=== PATIENT | female | born 1980 | race Caucasian/White ===

== ENCOUNTER 2020-10-07 23:01 | Emergency (ER) | payer OTHER ==
[~2020-10-07] VITALS: Ht 162.6 cm; Wt 120.2 kg
[~2020-10-07 23:01] MED LIST: ACETAMINOPHEN-1 EAC1 PO; ALDACTONE25 MG; ATIVAN1 MG PO; BUSPIRONE HCL10 MG PO; BUSPIRONE HCL7.5 MG; BUTALB-APAP-CA1 EACH; CARTIA XT180 M1; CLARITIN10 MG; CLINDAMYCIN HC150 MG PO; CYMBALTA60 MG; DILTIAZEM ER120 M1; FLONASE 0.05%50 MCG NASAL; LASIX 20 MG TAB20 MG; LEVOTHYROXIN0.025 MG PO; LISINOPRIL20 MG; MEDROLDOSEPACK PO; NEURONTIN 300300 M1; PROAIR HFA8.5 GM INH; PROMETHAZINE D480 ML PO; PROMETHAZINE/C118 ML PO; PROZAC 10 MG CA10 MG; TESSALON PERLE100 MG PO; TYLENOL WITH CO1 TA1; XANAX 0.25 MG0.25 MG PO; XANAX 0.5 MG0.5 MG; ZANTAC 150MG T150 MG; ZOFRAN ODT4 MG; ZPAK PO
[2020-10-07] MEDS ORDERED: FISH OIL 1,0001 EAC9 PO (23:14)
[2020-10-07] MEDS ORDERED: CALCIUM500 MG PO (23:14)
[2020-10-07] MEDS ORDERED: FUROSEMIDE 20 M20 MG PO (23:14)
[2020-10-07] MEDS ORDERED: XANAX 0.5 MG0.5 M1 PO (23:15)
[2020-10-08 00:01] LABS: CALCIUM 8.5 mg/dL (8.5-10.1); CREATININE 1.1 mg/dL (0.6-1.3); POTASSIUM 3.7 mmol/L (3.5-5.1)
[2020-10-08 00:12] LABS: TOTAL BILIRUBIN 0.7 mg/dL (<0.1-1.0); TOTAL PROTEIN 8.4 g/dL (6.4-8.2)
[2020-10-08 00:18] LABS: ABSOLUTE BASOPHILS 0.1 thou/uL (0.0-0.2); ABSOLUTE EOSINOPHILS 0.2 thou/uL (0.0-0.7); ABSOLUTE LYMPHOCYTES 2.3 thou/uL (0.8-5.3); ABSOLUTE MONOCYTES 0.7 thou/uL (0.0-1.2); ABSOLUTE NEUTROPHILS 8.5 thou/uL (1.6-8.1); BASOPHILS 0.8 %; EOSINOPHILS 1.7 %; HEMATOCRIT 39.6 % (37.0-47.0); HEMOGLOBIN 13.7 gm/dL (12.0-15.0); LYMPHOCYTES 19.6 %; MCH 28.6 pg (26.0-34.0); MCHC 34.6 g/dL (28.0-37.0); MCV 82.6 fL (80.0-100.0); MONOCYTES 6.3 %; MPV 8.3 fl. (7.2-11.1); NUCLEATED RBCS 0 /100WBC; PLATELET COUNT* 321 thou/uL (150-400); POLYS 71.6 %; RBC 4.79 mil/uL (4.20-5.00); RDW-CV 14.1 % (10.5-14.5); WBC 11.9 thou/uL (4.0-11.0)
[2020-10-08] MEDS ORDERED: FUROSEMIDE 20 M20 M1 PO (02:38)
[2020-10-08 02:49] VITALS: BP 170/84
--- NOTE | 2020-10-09 14:02 | EKG ---
[place] [address] ELECTROCARDIOGRAM REPORT Name: DONNA HAM Room: [facility]#: [id number] Admission: 10/07/20 Attend Phys: Discharge: 10/08/20 Date of : 80 Date of Service: 10/07/20 2344 Report #: [id number] THIS REPORT FOR: //name// [facility] ED Test Date: 2020-10-07 Test Time: 23:44:08 Pat Name: DONNA HAM Department: Room: Gender: F Infectious Disease Technician: : 1980 Requested By: Maty Hung Order Number: [id number] MD: Kofi Encarnacion Measurements Intervals [place] Rate: 67 P: 49 DC: 171 QRS: 3 QRSD: 94 T: 27 QT: 453 QTc: 479 Interpretive Statements Sinus rhythm Borderline prolonged QT interval Baseline wander in lead(s) II,III,aVR,aVL,aVF,V2,V3,V4,V5,V6 Compared to ECG 04/19/2015 03:48:47 Sinus bradycardia no longer present Electronically Signed On 10-09-2020 14:02:29 CDT by Kofi Encarnacion [email or web address] <ELECTRONICALLY SIGNED> By: Kofi Encarnacion MD, [facility] 10/09/20 1402 2344 2344 Kofi Encarnacion MD, [facility] /EPI
== END 2020-10-08 02:49 | disposition home or self-care (01) ==
LOC: M.ERS 23:01
PROVIDERS: Emergency Medicine
DX: J81.0 Acute pulmonary edema (principal); I10 Essential (primary) hypertension; Z20.822 Contact with and (suspected) exposure to COVID-19; Z98.890 Other specified postprocedural states; N83.209 Unspecified ovarian cyst, unspecified side; Z88.0 Allergy status to penicillin; Z88.2 Allergy status to sulfonamides; Z79.2 Long term (current) use of antibiotics; Z79.899 Other long term (current) drug therapy